=== PATIENT | male | born 2000 | race Caucasian/White ===

== ENCOUNTER 2025-04-23 22:13 | Emergency (ER) | payer MEDICAID, SELFPAY ==
[2025-04-23 22:17] VITALS: BP 132/86; PULSE 88; O2SAT 99
[2025-04-23 22:23] VITALS: BP 111/68; PULSE 62; RESP 16; TEMP 36.4; O2SAT 96; BMI 36.2
--- NOTE | 2025-04-23 22:32 | ED.GENADULT ---
HPI - General Adult General Chief complaint: Allergic Reaction Stated complaint: ALLERGIC RXN Time Seen by Provider: 04/23/25 22:32 Source: patient Mode of arrival: ambulatory Limitations: no limitations History of Present Illness ED Provider: Dr. 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 Patient stated ate some cookie today. That may have not seen here. Patient stated that he has been having some rash. He had a really bad allergic reaction in the past therefore he called 911. Related Data Previous Rx's ?Medication ?Instructions ?Recorded prednisone 20 mg tablet 20 mg PO DAILY 3 days #3 tabs 04/23/25 Allergies Allergy/AdvReac Type Severity Reaction Status Date / Time nut - unspecified Allergy Difficulty Verified 04/23/25 22:25 Breathing shellfish derived (shellfish) Allergy Itching Verified 04/23/25 22:25 Review of Systems Review of Systems: Pertinent review of systems as mentioned in HPI. All other system otherwise negative. [facility] Past Medical History [facility] Narrative: Medical history as mentioned in [facility] Social History Social History Advance Directives: No Advance Directives Information Provided: No Do you have a plan to hurt others: No Plan Physical Exam ED Exam Exam: General: Pleasant, no distress, interacting appropriately Head: Normacephalic, atraumatic ENT: oral mucosa moist, neck supple, no tracheal deviation Cardiovascular: regular rate, regular rhythm, no murmurs, rubbing, gallops Respiratory: CTAB, no wheeze, rales, rhonchi Gastrointestinal: Soft, non distended, non tender, non guarding Skin: Warm and dry, no hives or urticaria identified on exam Psychiatric: Appropriate mood and thoughts Vital Signs: Vital Signs - 24 hr 04/23/25 22:23 Temperature 97.6 F Pulse Rate 62 Respiratory Rate 16 Blood Pressure 111/68 Pulse Oximetry 96 Oxygen Delivery Method Room Air BMI result Body Mass Index 36.2 Medical Decision Making Medical Decision Making [facility] Narrative: This is a 24-year-old male presented hospital today for evaluation of possible allergic reaction. On my assessment I do not think patient has a anaphylaxis. We will plan to give patient a dose of prednisone here. Patient has no signs of anaphylaxis his eye meat anaphylaxis shock criteria at this time. Patient's airway is clear. No sign of angioedema on exam. No sign of wheezing. No sign of belly pain. Blood pressure stable at this time does not appear to be acutely tachypneic. No sign of urticaria. We will plan to discharge patient with for a couple of day course of prednisone. Patient does have EpiPen at home. Patient will be discharged at this time Differential Diagnosis Differential Diagnoses: The differential diagnosis associated with the presentation includes Anaphylaxis, allergic reaction, angioedema Discharge Plan Discharge Clinical Impression: Allergic reaction Qualifiers: Encounter type: initial encounter Qualified Code(s): T78.40XA - Allergy, unspecified, initial encounter Patient Disposition: Home, Self-Care Instructions: General Allergic Reaction (ED) Prescriptions: New prednisone 20 mg tablet 20 mg PO DAILY 3 Days Qty: 3 0RF Print Language: Syriac
--- OUTSIDE RECORDS SUMMARY | 2025-04-23 22:43 | XMS_ITS ---
Author Name [facility] Organization Unknown History of Medication Use Medication Directions Dispensed Refills Start Date End Date Stat us EPINEPHrine (EPIPEN) 0.3 mg/0.3 mL auto-injector Inject 0.3 mL (0.3 mg total) intramuscularly 11/17/2024 activ e Problems Problem Status Onset Date Problem Type Date of Resoluti on Source Physical exam, pre-employment active EncounterDiagnosisAct [facility] Immunizations Vaccine Date Source Lot Number Status PPD Test 09/04/2023 [facility] [id number] completed Fluzone Trivalent Multi-dose Vial (36+ months) 03/31/2020 [facility] [id number] completed Gardasil Single Dose Vial 11/19/2019 [facility] [id number] completed Meningococcal Conjugate 11/19/2019 [facility] [id number] c ompleted Fluzone Trivalent Multi-dose Vial (36+ months) 06/12/2019 [facility] [id number] completed Meningococcal Conjugate 06/03/2019 [facility] [id number] c ompleted Meningococcal, Unspecified 06/03/2019 [facility] [id number] completed Fluzone Trivalent Multi-dose Vial (36+ months) 05/28/2017 [facility] [id number] completed Hepatitis A 12/25/2012 [facility] UNK completed Meningococcal, Unspecified 12/25/2012 [facility] UNK completed Tdap 12/25/2012 [facility] UNK completed Hepatitis A 11/20/2010 [facility] UNK completed Varicella 06/15/2008 [facility] UNK completed Varicella 03/18/2008 [facility] UNK completed Infanrix DTaP Prefilled Syringe 11/08/2005 [facility] UNK completed IPV 11/08/2005 [facility] UNK completed MMR 11/08/2005 [facility] UNK completed Infanrix DTaP Prefilled Syringe 08/25/2004 [facility] UNK completed MMR 05/10/2004 [facility] UNK completed Infanrix DTaP Prefilled Syringe 04/30/2004 [facility] UNK completed Hep B, Adolescent or Pediatric 05/14/2002 [facility] UNK completed Infanrix DTaP Prefilled Syringe 05/14/2002 [facility] UNK completed IPV 05/14/2002 [facility] UNK completed Infanrix DTaP Prefilled Syringe 01/05/2002 [facility] UNK completed IPV 01/05/2002 [facility] UNK completed IPV 2001 [facility] UNK completed Hep B, Adolescent or Pediatric 2001 [facility] UNK completed Hep B, Adolescent or Pediatric 2001 [facility] UNK completed Encounters Encounter Type Encounter Reason Primary Diagnosis Location Date Ambulatory Administrative Physical Encounte r for pre-employment examination [facility] 12/23/2024 Care Team Organization Name Specialty Phone Email Start Date End Da te [facility] NO PCP Primary Care 12/23
[2025-04-24 00:03] VITALS: BP 111/68; PULSE 62; RESP 16; TEMP 36.4; O2SAT 96
== END 2025-04-24 00:04 | disposition home or self-care (01) ==
PROVIDERS: Emergency Provider Student in an Organized Health Care Education/Training Program
DX: R21 Rash and other nonspecific skin eruption (principal); L23.9 Allergic contact dermatitis, unspecified cause
CPT/HCPCS: 99282; 99283